=== PATIENT | male | born 1985 | race Caucasian/White ===

== ENCOUNTER 2017-11-04 09:35 | Emergency (ER) | payer SELFPAY ==
[2017-11-04 09:53] VITALS: BP 142/102; PULSE 108; RESP 20; TEMP 36.8; O2SAT 99; BMI 27.9
--- NOTE | 2017-11-04 10:01 | [facility].EDMCLR ---
ED Disposition Clinical Impression: Encounter for medical clearance for patient hold Disposition: Home, Self-Care Condition on Discharge: Good - Critical Care Critical Care Time: No Attestation: On , the high probability of a clinically significant, sudden or life threatening deterioration of the following system(s) required my full and direct attention, intervention and personal management. The time I documented below is in addition to time spent performing reported procedures but includes the following listed in this critical care notation. Medical Decision Making - Heath Inquiry Pt receiving controlled substance: No Heath was queried for this patient: No Medical Clearance HPI - General Stated complaint: medical clearance Time Seen by Provider: 11/04/17 10:01 - History of Present Illness HPI Narrative: 32 history of prior joint surgeries and opiate addiction. He has been a patient of a [facility] on clinic until he lost his insurance. He claims that he has been using 8 mg twice daily but since he is no has been using them scarcely half a tablet twice a day. Last use was 6 PM yesterday. Today he was arrested by the police for some primary charges that was not revealed to me and was found to have medication with no prescriptions that he was arrested and is here for medical clearance. He denies any complaints. MD complaint: medical clearance requested Alleged Intoxication: Yes Compliant with Home Medications: No Traumatic Symptoms: denies traumatic injury Associated Symptoms: denies other symptoms Treatments Prior to Arrival: none Allergies/Adverse reactions: Allergies Allergy/AdvReac Type Severity Reaction Status Date / Time No Known Allergies Allergy Verified 11/04/17 10:02 [facility] History I have reviewed the patient's past medical history: Yes Amputation: No Fractures: No ROS Obtained: Yes All systems reviewed & no additional complaints Physical Exam - General General appearance: alert, in no apparent distress - Head Head exam: atraumatic, normocephalic, normal inspection - Eye Eye exam: Present: normal appearance, PERRL, EOMI - ENT ENT exam: Present: normal exam, normal oropharynx, mucous membranes moist, TM's normal bilaterally, normal external ear exam - Neck Neck exam: Present: normal inspection, full ROM, trachea midline. Absent: meningismus, lymphadenopathy - Chest Chest inspection: Present: normal inspection, symmetric chest wall rise. Absent: tenderness - Respiratory Respiratory exam: Present: normal lung sounds bilaterally. Absent: respiratory distress - Cardiovascular Cardiovascular exam: Present: regular rate, normal rhythm. Absent: JVD - Abdominal Exam Abdominal exam: Present: soft, normal bowel sounds. Absent: distention, tenderness, guarding, rebound, rigidity - exam: Present: other (It was not indicated) - Back Exam Back exam: Present: normal inspection. Absent: tenderness - Neurological Exam Neurological exam: Present: alert, oriented X3, CN II-XII intact, normal gait, motor sensory deficit, reflexes normal - Psychiatric Psychiatric exam: Present: normal affect, anxious - Skin Skin exam: Present: warm, dry, intact, normal color - Lymphatic Lymphatic Findings: no adenopathy
[2017-11-04 10:11] VITALS: BP 148/96; PULSE 92; RESP 16; TEMP 36.8
== END 2017-11-04 10:13 | disposition home or self-care (01) ==
PROVIDERS: Emergency Provider Emergency Medicine
DX: Z00.8 Encounter for other general examination (principal)
CPT/HCPCS: 99282